=== PATIENT | male | born 1975 | race Caucasian/White ===

== ENCOUNTER 2020-10-07 05:20 | Day surgery (SDC) | payer OTHER ==
[~2020-10-07] VITALS: Ht 175.3 cm; Wt 61.1 kg
[2020-10-07] MEDS ORDERED: NONE PER PT (06:21)
[2020-10-07] MEDS ORDERED: CHLORHEXIDINE 15 ML UDC PO ONE (06:30)
[2020-10-07] MEDS ORDERED: LACTATED RINGERS 1,000 ML IV SCH (06:30)
[2020-10-07 06:43] VITALS: BP 122/83
[2020-10-07] MEDS ORDERED: EPINEPHRINE 1 MG/ML, 1ML ONE (06:47)
[2020-10-07] MEDS ORDERED: BUPIVACAINE/PF 0.5% ONE (06:47)
[2020-10-07] MEDS ORDERED: GENTAMICIN 80 MG/2 ML ONE (06:47)
[2020-10-07] MEDS ORDERED: THROMBIN 20,000 UNIT VIAL TP ONE (06:47)
[2020-10-07] MEDS ORDERED: VANCOMYCIN 1,000 MG ONE (06:47)
[2020-10-07] MEDS ORDERED: FENTANYL PF 250 MCG/5ML ONE (07:20)
[2020-10-07] MEDS ORDERED: MIDAZOLAM 1 MG/ML, 2ML ONE ×2 (07:20→07:55)
[2020-10-07] MEDS ORDERED: PROPOFOL 50 ML ONE ×2 (07:21→08:52)
[2020-10-07] MEDS ORDERED: PROMETHAZINE 25 MG/ML, 1ML IVPush PRN (07:30)
[2020-10-07] MEDS ORDERED: MEPERIDINE/PF 25MG/0.5ML IVPush PRN (07:30)
[2020-10-07] MEDS ORDERED: DIPHENHYDRAMINE 50 MG/ML, 1ML IVPush PRN (07:30)
[2020-10-07] MEDS ORDERED: ACETAMINOPHEN 325 MG TABLET PO PRN (07:30)
[2020-10-07] MEDS ORDERED: hydrALAzine 20 MG/ML, 1ML IV PRN (07:30)
[2020-10-07] MEDS ORDERED: HALOPERIDOL 5 MG/ML IV PRN (07:30)
[2020-10-07] MEDS ORDERED: FENTANYL PF 100 MCG/2ML IV PRN (07:30)
[2020-10-07] MEDS ORDERED: HYDROmorphone 1 MG/ML, 1ML INJ IVPush PRN (07:30)
[2020-10-07] MEDS ORDERED: LABETALOL 5MG/ML, 20ML IV PRN (07:30)
[2020-10-07] MEDS ORDERED: SUGAMMADEX 200 MG/2 ML IVPush ONE ×2 (08:08→08:09)
[2020-10-07] MEDS ORDERED: PROPOFOL 10 MG/ML, 20ML ONE (09:41)
[2020-10-07] MEDS ORDERED: ROCURONIUM 10MG/ML,5ML ONE (09:41)
[2020-10-07] MEDS ORDERED: ONDANSETRON 2MG/ML, 2ML ONE (09:41)
[2020-10-07] MEDS ORDERED: GLYCOPYRROLATE 0.2MG/1ML, 5ML ONE (09:41)
[2020-10-07] MEDS ORDERED: CEFAZOLIN 1,000 MG ONE (09:41)
[2020-10-07] MEDS ORDERED: SUCCINYLCHOLINE 20 MG/ML, 10ML ONE (09:41)
[2020-10-07] MEDS ORDERED: NEOSTIGMINE 1 MG/ML, 10ML ONE (09:41)
[2020-10-07] MEDS ORDERED: DEXAMETHASONE 4 MG/ML, 1ML ONE (09:41)
[2020-10-07] MEDS ORDERED: METH-640 PO ×5 (10:12→14:11)
[2020-10-07] MEDS ORDERED: METH4TAB2 PO ×5 (10:12→14:11)
[2020-10-07] MEDS ORDERED: OXYC-302 PO ×5 (10:12→14:11)
[2020-10-07] MEDS ORDERED: ACETAMINOPHEN 650 MG/20.3 ML UDC ONE ×2 (10:16→10:28)
[2020-10-07] MEDS ORDERED: FENTANYL PF 100 MCG/2ML ONE (10:16)
[2020-10-07] MEDS ORDERED: OXYcodone 5 MG/5 ML ORAL.SOL UDC ONE (10:16)
[2020-10-07] MEDS: OXYcodone 5 MG/5 ML ORAL.SOL UDC PO PRN ×2 (10:37→11:39)
[2020-10-07] MEDS ORDERED: METHOCARBAMOL 1,000 MG in DEXTROSE 5% 100 ML IV ONE (11:00)
== END 2020-10-07 13:17 | disposition home or self-care (01) ==
LOC: OUT 05:20
PROVIDERS: ATTEND Neurological Surgery
DX: M50.122 Cervical disc disorder at C5-C6 level with radiculopathy (principal); M48.02 Spinal stenosis, cervical region; M25.78 Osteophyte, vertebrae; F17.210 Nicotine dependence, cigarettes, uncomplicated; Z79.899 Other long term (current) drug therapy; Z98.1 Arthrodesis status; Z80.1 Family history of malignant neoplasm of trachea, bronchus and lung
CPT/HCPCS: 20930; 22551; 22845; 22853; 72040; 95938; 95941; C1713; C1762; C1776; J0171; J0330; J0690; J1100; J1580; J2250; J2405; J2704; J2800; J3010; J3370; J7120; J2710